=== PATIENT | female | born 1995 | race Caucasian/White ===

== ENCOUNTER 2019-06-09 20:18 | Emergency (ER) | payer OTHER ==
[~2019-06-09] VITALS: Ht 170.2 cm; Wt 70.3 kg
[2019-06-09] MEDS ORDERED: PRENATAL PO (20:30)
[2019-06-09 21:03] LABS: ABSOLUTE EOSINOPHILS 0.1 thou/uL (0.0-0.7); ABSOLUTE LYMPHOCYTES 1.6 thou/uL (0.8-5.3); ABSOLUTE MONOCYTES 1.1 thou/uL (0.0-1.2); ABSOLUTE NEUTROPHILS 3.8 thou/uL (1.6-8.1); BASOPHILS 0.7 %; HEMATOCRIT 38.7 % (37.0-47.0); HEMOGLOBIN 13.4 gm/dL (12.0-15.0); LYMPHOCYTES 23.9 %; MCH 29.5 pg (26.0-34.0); MCHC 34.6 g/dL (28.0-37.0); MCV 85.3 fL (80.0-100.0); MONOCYTES 17.4 %; MPV 7.6 fl. (7.2-11.1); NUCLEATED RBCS 0 /100WBC; PLATELET COUNT* 331 thou/uL (150-400); RBC 4.54 mil/uL (4.20-5.00); RDW-CV 13.4 % (10.5-14.5); WBC 6.6 thou/uL (4.0-11.0)
[2019-06-09 21:06] LABS: URINE BILIRUBIN NEGATIVE (Negative); URINE BLOOD TRACE (Negative); URINE CLARITY CLEAR; URINE COLOR YELLOW; URINE GLUCOSE-RANDOM NEGATIVE (Negative); URINE KETONES 1+ (Negative); URINE LEUKOCYTES-REFLEX NEGATIVE (Negative); URINE NITRITE-REFLEX NEGATIVE (Negative); URINE PROTEIN 1+ (Negative); URINE SPECIFIC GRAVITY >= 1.030 (1.005-1.030)
[2019-06-09 21:19] LABS: CALCIUM 8.9 mg/dL (8.5-10.1); CREATININE 0.8 mg/dL (0.6-1.3); POTASSIUM 3.7 mmol/L (3.5-5.1)
[2019-06-09 21:23] LABS: ALBUMIN 3.5 g/dL (3.4-5.0); TOTAL BILIRUBIN 0.3 mg/dL (<0.1-1.0); TOTAL PROTEIN 7.7 g/dL (6.4-8.2)
[2019-06-10 00:17] VITALS: BP 119/65
--- NOTE | 2019-06-10 09:33 | EKG ---
[place] [address] ELECTROCARDIOGRAM REPORT Name: AIDAN ALFRED Room: [facility]#: [id number] Admission: 06/09/19 Attend Phys: Discharge: 06/10/19 Date of : [birth year] Report #: [id number] THIS REPORT FOR: //name// [facility] ED Test Date: 2019-06-09 Test Time: 20:35:06 Pat Name: AIDAN ALFRED Department: Room: Gender: F [employer]: FREDO : 1995 Requested By: Shelly Nevarez Order Number: [id number] Shagufta MD: Maico Giron Measurements Intervals [place] Rate: 96 P: 72 FL: 140 QRS: 63 QRSD: 91 T: -15 QT: 348 QTc: 440 Interpretive Statements Sinus rhythm Borderline repolarization abnormality Baseline wander in lead(s) V3,V4,V5,V6 No previous ECG available for comparison Electronically Signed On 06-10-2019 9:33:31 CDT by Maico Giron [email or web address] <ELECTRONICALLY SIGNED> By: Maico Giron MD, [facility] 06/10/19 0933 34 34 Maico Giron MD, FAC /EPI
== END 2019-06-10 00:18 | disposition home or self-care (01) ==
LOC: M.ERS 20:18
PROVIDERS: Nurse Practitioner Family
DX: O21.0 Mild hyperemesis gravidarum (principal); R10.9 Unspecified abdominal pain; Z3A.14 14 weeks gestation of pregnancy; Z88.1 Allergy status to other antibiotic agents

== ENCOUNTER 2021-05-26 15:53 | Emergency (ER) | payer OTHER ==
[~2021-05-26] VITALS: Ht 170.2 cm; Wt 81.7 kg
[~2021-05-26 15:53] MED LIST: PRENATAL PO
[2021-05-26] MEDS ORDERED: QUDEXY XR25 MG PO (16:08)
[2021-05-26] MEDS ORDERED: IMITREX100 MG PO (16:08)
[2021-05-26 17:33] LABS: HEMOGLOBIN 13.5 gm/dL (12.0-15.0); MCH 29.4 pg (26.0-34.0); MCHC 33.9 g/dL (28.0-37.0); MCV 86.7 fL (80.0-100.0); MPV 7.2 fl. (7.2-11.1); NUCLEATED RBCS 0 /100WBC; PLATELET COUNT* 327 thou/uL (150-400); RBC 4.61 mil/uL (4.20-5.00); RDW-CV 12.9 % (10.5-14.5); WBC 15.7 thou/uL (4.0-11.0)
[2021-05-26 17:44] LABS: CALCIUM 8.4 mg/dL (8.5-10.1); CREATININE 1.3 mg/dL (0.6-1.3); POTASSIUM 4.2 mmol/L (3.5-5.1)
[2021-05-26 17:45] LABS: URINE BLOOD 2+ (Negative); URINE COLOR YELLOW; URINE GLUCOSE-RANDOM NEGATIVE (Negative); URINE LEUKOCYTES NEGATIVE (Negative); URINE NITRITE NEGATIVE (Negative); URINE PROTEIN TRACE (Negative); URINE UROBILINOGEN 0.2 E.U./dl (0.2-1.0)
[2021-05-26 17:48] LABS: ALBUMIN 4.1 g/dL (3.4-5.0); TOTAL BILIRUBIN 0.7 mg/dL (<0.1-1.0); TOTAL PROTEIN 7.7 g/dL (6.4-8.2)
[2021-05-26 17:48] LABS: ICTOTEST (BILI CONFIRMATORY) Negative (Negative); URINE BILIRUBIN 1+ (Negative); URINE CLARITY HAZY; URINE KETONES 3+ (Negative)
[2021-05-26 17:49] LABS: BACTERIA None Seen /HPF (None Seen); CASTS None Seen /LPF (None Seen); CRYSTALS None Seen /LPF (None Seen); SQUAMOUS 4-10 Moderate /LPF (0-3); URINE RBC 3-10 Few /HPF (0-2); URINE WBC None Seen /HPF (0-5)
[2021-05-26 17:51] LABS: ABSOLUTE BASOPHILS 0.2 thou/uL (0.0-0.2); ABSOLUTE LYMPHOCYTES 1.3 thou/uL (0.8-5.3); ABSOLUTE MONOCYTES 0.3 thou/uL (0.0-1.2); PLATELET ESTIMATE ADEQUATE
[2021-05-26] MEDS ORDERED: NAPROSYN500 MG PO (20:38)
[2021-05-26] MEDS ORDERED: NORCO5 PO ×2 (20:38→20:55)
[2021-05-26] MEDS ORDERED: ONDANSETRON ODT4 MG PO (20:38)
[2021-05-26 21:26] VITALS: BP 120/88
== END 2021-05-26 21:26 | disposition home or self-care (01) ==
LOC: M.ERS 15:53
PROVIDERS: Emergency Medicine; Physician Assistant
DX: R10.31 Right lower quadrant pain (principal); Z79.899 Other long term (current) drug therapy; Z88.1 Allergy status to other antibiotic agents